=== PATIENT | male | born 1980 | race Two or more races ===

== ENCOUNTER 2017-11-21 07:05 | Emergency (ER) | payer SELFPAY ==
[~2017-11-21] VITALS: Ht 167.6 cm; Wt 73.2 kg
[2017-11-21 07:08] VITALS: BP 135/85
--- NOTE | 2017-11-21 07:13 | NUR ---
37 Y/O M W/C/O RASH IN CLUSTERS TO NECK AND HEAD AREA X 4 DAYS. NO MED HX. DENIES N/V/D; SKIN IS PINK/WARM/DRY; AAOX4 WITH EVEN AND STEADY GAIT; LUNGS CLEAR BL; HR EVEN AND REGULAR; PT DENIES ANY FEVER, CP, SOB, OR COUGH AT THIS TIME; PATIENT STATES PAIN OF 5/10 AT THIS TIME; VSS; PATIENT POSITIONED FOR COMFORT; HOB ELEVATED; BEDRAILS UP X2; BED DOWN. ER MD MADE AWARE OF PT STATUS.
--- NOTE | 2017-11-21 07:14 | NUR ---
Dr. Tsai evaluating patient at bedside.
[2017-11-21 07:39] VITALS: BP 141/83
--- NOTE | 2017-11-21 07:39 | NUR ---
Patient discharged with v/s stable. Written and verbal after care instructions given and explained. Patient alert, oriented and verbalized understanding of instructions. Ambulatory with steady gait. All questions addressed prior to discharge. ID band removed. Patient advised to follow up with PMD. Rx of ACYCLOVIR, NAPROSYN, TRAMADOL given. Patient educated on indication of medication including possible reaction and side effects. Opportunity to ask questions provided and answered.
== END 2017-11-21 07:39 | disposition home or self-care (01) ==
LOC: MED 07:05
DX: B02.9 Zoster without complications (principal); F17.210 Nicotine dependence, cigarettes, uncomplicated; R03.0 Elevated blood-pressure reading, without diagnosis of hypertension
CPT/HCPCS: 99283

== ENCOUNTER 2018-06-29 13:01 | Emergency (ER) | payer SELFPAY ==
[~2018-06-29] VITALS: Ht 167.6 cm; Wt 73.5 kg
[2018-06-29 13:16] VITALS: BP 117/82
--- NOTE | 2018-06-29 13:27 | NUR ---
patient to lobby awaiting available room. paul. sukhi.
--- NOTE | 2018-06-29 13:31 | NUR ---
Note undone in EDM - 06/29/18 at 1438 by [email or web address] 38 yo f bib self with c/o 3rd digit of left hand pain laceration d/t cutting it with " carpet cutting scissors". Last tetanus unknown. Laceration approximately 1inch long. Bleeding controlled. pt aaox4, gcs 15, cms intact. rr even and unlabored. lungs bl clear. abd soft, non-tender. er md notified. pt needs met. safety precautions in place. will continue to monitor.
--- NOTE | 2018-06-29 13:44 | NUR ---
38 yo f bib self with c/o 3rd digit of left hand pain laceration d/t cutting it with " carpet cutting scissors". Last tetanus unknown. Laceration approximately 1inch long. Bleeding controlled. pt aaox4, gcs 15, cms intact. rr even and unlabored. lungs bl clear. abd soft, non-tender. er md notified. pt needs met. safety precautions in place. will continue to monitor.
--- NOTE | 2018-06-29 13:44 | NUR ---
PT AMBULATES TO BED 4
--- NOTE | 2018-06-29 15:07 | NUR ---
1450 PT LWBS AT THIS TIME
== END 2018-06-29 14:50 | disposition left against medical advice (07) ==
LOC: MED 13:01
DX: S61.412A Laceration without foreign body of left hand, initial encounter (principal); Z53.21 Procedure and treatment not carried out due to patient leaving prior to being seen by health care provider; W27.2XXA Contact with scissors, initial encounter; Y93.89 Activity, other specified; Y92.89 Other specified places as the place of occurrence of the external cause; Y99.8 Other external cause status